=== PATIENT | female | born 1985 | race Caucasian/White ===

== ENCOUNTER 2017-12-26 11:24 | Emergency (ER) | payer OTHER ==
[~2017-12-26] VITALS: Ht 165.1 cm; Wt 56.7 kg
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
[2017-12-26] MEDS ORDERED: ADDERALL 30 MG30 MG PO (13:53)
== END 2017-12-26 14:39 | disposition short-term general hospital (02) ==
LOC: ERH 11:24
DX: T74.11XA Adult physical abuse, confirmed, initial encounter (principal); S02.82XA Fracture of other specified skull and facial bones, left side, initial encounter for closed fracture; Y04.0XXA Assault by unarmed brawl or fight, initial encounter; Y07.03 Male partner, perpetrator of maltreatment and neglect
CPT/HCPCS: 81025; J0131